=== PATIENT | male | born 1960 | race African-American/Black ===

== ENCOUNTER 2024-01-19 16:50 | Inpatient (IN) | payer OTHER ==
[~2024-01-19] VITALS: Ht 175.3 cm; Wt 73.5 kg
[2024-01-19] MEDS: IOHEXOL-350 100 ML BOTTLE ONE ×2 (17:31→23:59)
[2024-01-19 18:51] LABS: BASOPHILS % 1.1 % (0.0-2.0); EOSINOPHILS % 2.3 % (0.0-5.0); HEMATOCRIT. 40.8 % (42.0-52.0); LYMPHOCYTES % 21.3 % (20.0-50.0); MEAN CORPUSCULAR HEMOGLOBIN 31.1 pg (28.0-32.0); MEAN CORPUSCULAR HGB CONC 34.4 g/dL (31.0-37.0); MEAN CORPUSCULAR VOLUME 90.2 fL (80.0-94.0); MEAN PLATELET VOLUME 7.5 fl (7.4-10.4); MONOCYTES % 9.5 % (2.0-8.0); NEUTROPHILS % 65.8 % (40.0-76.0); PLATELET 328 x1000/uL (130-400); RED BLOOD CELL COUNT 4.52 mill/uL (4.7-6.1); RED CELL DISTRIBUTION WIDTH 14.1 % (11.6-14.6); WHITE BLOOD COUNT 6.1 x1000/uL (4.5-11.0)
[2024-01-19 18:56] LABS: CHLORIDE 107 mEq/L (98-107); POTASSIUM 4.1 mEq/L (3.5-5.1); SODIUM 141 mEq/L (136-145)
[2024-01-19 18:57] LABS: CALCIUM 9.7 mg/dL (8.7-10.4); CARBON DIOXIDE 28 mEq/L (21-32)
[2024-01-19 19:02] LABS: CREATININE 1.3 mg/dL (0.6-1.3); GLUCOSE 90 mg/dL (70-105); UREA NITROGEN BLOOD 29 mg/dL (9-23)
[2024-01-19 19:03] LABS: TROPONIN I HIGH SENSITIVITY 21 ng/L (3.0-53)
[2024-01-19 19:04] LABS: ALANINE AMINOTRANSFERASE 35 IU/L (10-49); ALBUMIN 4.4 g/dL (3.2-4.8); ASPARTATE AMINOTRANSFERASE 20 IU/L (<34); BILIRUBIN DIRECT 0.2 mg/dL (<=3.0); BILIRUBIN TOTAL 0.6 mg/dL (0.1-1.0); ETHANOL BLOOD < 10 mg/dL (<10); PROTEIN TOTAL 7.2 g/dL (6.0-8.3)
[2024-01-19 21:38] LABS: TROPONIN I HIGH SENSITIVITY 22 ng/L (3.0-53)
[2024-01-19] MEDS ORDERED: ASPI-986 PO (22:09)
[2024-01-19] MEDS ORDERED: METO-396 MT (22:12)
[2024-01-19] MEDS ORDERED: VALS80TA30 PO (22:15)
[2024-01-19] MEDS ORDERED: ATOR-2 MT (22:16)
[2024-01-19] MEDS ORDERED: NIFE-32 MT (22:18)
[2024-01-20] VITALS (7 sets, daily range): BP systolic 136–146; BP diastolic 56–97; PULSE 77–113; RESP 18–20; TEMP 36.4736–36.9474; O2SAT 98–99
[2024-01-20 01:14] LABS: CLARITY URINE CLEAR (CLEAR); COLOR URINE YELLOW (YELLOW); GLUCOSE URINE NEGATIVE (NEGATIVE); KETONES URINE NEGATIVE (NEGATIVE); LEUKOCYTE ESTERASE URINE NEGATIVE (NEGATIVE); NITRITE URINE NEGATIVE (NEGATIVE); OCCULT BLOOD URINE NEGATIVE (NEGATIVE); PROTEIN URINE NEGATIVE (NEGATIVE); SPECIFIC GRAVITY URINE 1.062 (1.005-1.030)
[2024-01-20 01:23] LABS: *AMPHETAMINES SCREEN URINE NEGATIVE (NEGATIVE); *BARBITURATES SCREEN URINE NEGATIVE (NEGATIVE); *BENZODIAZEPINES SCREEN URINE NEGATIVE (NEGATIVE); *COCAINE SCREEN URINE PRESUMPTIVE POSITIVE (NEGATIVE); CANNABINOID URINE SCREEN PRESUMPTIVE POSITIVE (NEGATIVE); ECSTASY MDMA SCREEN URINE NEGATIVE (NEGATIVE); METHADONE URINE SCREEN NEGATIVE (NEGATIVE); OPIATES URINE SCREEN PRESUMPTIVE POSITIVE (NEGATIVE); PHENCYCLIDINE URINE SCREEN NEGATIVE (NEGATIVE)
[2024-01-20] MEDS: NIFEDIPINE XL 60MG TAB PO NR (01:32)
[2024-01-20] MEDS ORDERED: ZOLPIDEM TARTRATE 5MG TABLET PO PRN (03:15)
[2024-01-20] MEDS ORDERED: ACETAMINOPHEN 325MG TABLET PO PRN ×2 (03:15)
[2024-01-20] MEDS ORDERED: DIPHENHYDRAMINE 50MG/ML VIAL IV PRN (03:15)
[2024-01-20] MEDS ORDERED: ONDANSETRON HCL 4MG/2ML INJ IV PRN (03:15)
[2024-01-20] MEDS ORDERED: HYDRALAZINE 20MG/ML VIAL IV PRN (03:15)
[2024-01-20] MEDS ORDERED: CLONIDINE 0.1MG TABLET PO PRN (03:15)
[2024-01-20] MEDS: SODIUM CHLORIDE 0.9% 3ML FLUSH IVF SCH (05:15)
[2024-01-20] MEDS: LOSARTAN 50 MG TABLET PO SCH (08:20)
[2024-01-20] MEDS: ASPIRIN 325MG EC TABLET PO SCH (08:21)
[2024-01-20] MEDS: NIFEDIPINE XL 60MG TAB PO SCH (08:57)
[2024-01-20 17:16] LABS: *AMPHETAMINES SCREEN URINE NEGATIVE (NEGATIVE); *BARBITURATES SCREEN URINE NEGATIVE (NEGATIVE); *BENZODIAZEPINES SCREEN URINE NEGATIVE (NEGATIVE); *COCAINE SCREEN URINE NEGATIVE (NEGATIVE); CANNABINOID URINE SCREEN NEGATIVE (NEGATIVE); ECSTASY MDMA SCREEN URINE NEGATIVE (NEGATIVE); METHADONE URINE SCREEN NEGATIVE (NEGATIVE); OPIATES URINE SCREEN NEGATIVE (NEGATIVE); PHENCYCLIDINE URINE SCREEN NEGATIVE (NEGATIVE)
[2024-01-20] MEDS ORDERED: ATORVASTATIN CALCIUM 40MG TABLET PO SCH (21:00)
== END 2024-01-20 19:00 | disposition home or self-care (01) | DRG 69 ==
LOC: ER 16:50 → EDBD 16:50 → EDBEDREQ 18:42 → 8WST 01-20 02:51
PROVIDERS: ADMIT Internal Medicine; ATTEND Internal Medicine
DX: G45.9 Transient cerebral ischemic attack, unspecified (principal); I10 Essential (primary) hypertension; E78.00 Pure hypercholesterolemia, unspecified; Z95.0 Presence of cardiac pacemaker
CPT/HCPCS: 36415; 70496; 70498; 71045; 80048; 80076; 80305; 80320; 81003; 84484; 85025; 93005; 99291; Q9967; G0480